=== PATIENT | male | born 1970 ===

== ENCOUNTER 2024-06-12 17:23 | Inpatient (IN) | payer MEDICAID, SELFPAY ==
[2024-06-12] VITALS (58 sets, daily range): BP systolic 97–199; BP diastolic 73–151; PULSE 63–139; RESP 14–32; TEMP 36.4–36.7; O2SAT 87–98
--- NOTE | 2024-06-12 17:15 | RT.EKG_ITS ---
APPROVED REPORT Exam: Resting ECG Reason for Exam: AMS Patient Location: E HR:76 bpm ECG Measurements Heart Rate 76 AXIS UT 148 P 33 QRSd 85 QRS -15 QT 437 T 24 QTc 491 Conclusion Sinus rhythm, rate 76 Borderline QTc prolongation, 491ms No STEMI
--- NOTE | 2024-06-12 17:30 | DI.CT_ITS ---
Exam(s) CT HEAD WO EXAM: CT HEAD WO CLINICAL HISTORY: Altered mental status and speech x 3 days. TECHNIQUE: Imaging Protocol: Axial computed tomography images with coronal and sagittal reformatted images were created and reviewed COMPARISON: No exams were available for comparison FINDINGS: Ventricles and Extra axial spaces: Normal in size and morphology for the patient's age. Hemorrhage: None. Cerebral parenchyma: There are subtle areas of decreased attenuation in the white matter including an area in the left lentiform nucleus. These may represent areas of early chronic microvascular ischem ic disease. Midline shift: None. Brainstem/Cerebellum: Normal. Calvarium: Normal. Visualized Paranasal sinuses/Mastoids: Clear. Soft Tissues: Unremarkable. IMPRESSION: Subtle areas of decreased attenuation in the white matter suggesting early chronic microvascular isch emic disease. There is an area of decreased attenuation in the left lentiform nucleus. Small subacu te infarct cannot be excluded. An MRI of the brain is recommended in this patient for further evalua tion. RADIATION DOSE DELIVERED: 893.4mGy.cm Total DLP DATA REPOSITORY: All CT scans at this facility are submitted to the National Radiology Data Registry (NRDR) Dose Index Registry (DIR) with the [employer] (A[employer]). RADIATION OPTIMIZATION: All CT scans at this facility use at least one of these dose optimization te chniques: automated exposure control; mA and/or kV adjustment per patient size (includes targeted exa ms where dose is matched to clinical indication); or iterative reconstruction.
--- NOTE | 2024-06-12 17:45 | W.ED.GENAD ---
Discharge Plan Disposition Patient Disposition: Admit to [facility] Condition: Stable Discharge Details Clinical Impression: Encephalopathy Admit Date/Time: 06/12/24 20:25 Admit Provider: Luis Michael Attending Provider: Luis Michael Primary Care Provider: Unknown,Unknown ED Provider: Keya Horton Discharge Data Discharge Date/Time-TO BE ENTERED AT DEPARTURE: 06/12/24 21:16 HPI General Mode of arrival: ambulatory. Date/Time Provider Initiated Documentation: 06/12/24 17:26. Limitations to Documentation: no limitations. Information obtained by: patient, police and old records reviewed. HPI Narrative: HPI: This is a 54-year-old male patient currently incarcerated who is presenting for evaluation of altered mental status. The patient reports that about 3 days ago when he started to notice that he felt different, felt intermittently very warm, thought that the other inmates on his unit also looked red in the face. The corrections officers noted that his speech is normal believe than typical for him. States that he has not had any falls or injuries, no measured fevers, denies pain, shortness of breath, nausea or vomiting. He has been taking his prescribed medications, no reported missed doses. No reported illicit substance use or ingestions. Exam: Gen: Awake and alert, in no apparent distress HEENT: Non-icteric sclera, PERRL 3 mm bilaterally Neck: Supple Lungs: No apparent respiratory distress, normal respiratory effort. Lung sounds clear and equal bilaterally CV: Appears well perfused, heart with regular rate and rhythm, no murmurs auscultated Abdomen: Non-distended, soft, nontender MSK: Moves 4 extremities without apparent limitation in ROM within the confines of his shackles. Does endorse some left lower extremity pain in the setting of his history along full knee replacement, incision is well-healed. Skin: Visualized skin without rashes, cyanosis. Neuro: No obvious focal deficits or facial asymmetry. Speech is mumbled, trails off. Psych: Appropriate for situation. MDM: This is a 54-year-old male patient presenting for altered mental status. My differential includes but is not limited to infectious abnormality including urinary tract infection, no pulmonary symptoms to suggest URI or pneumonia. I certainly considered medically metabolic and electrolyte derangements, anemia, kidney and liver injury. Considered substance use, intoxication and withdrawal syndromes. Considered medication adherence, med effects, NMS, serotonin syndrome. Considered intracranial abnormalities including intracranial hemorrhage, stroke, no evidence for seizure activity. We will obtain an EKG, blood glucose, and laboratory studies to include CBC, CMP, magnesium, TSH, troponin, CK, tox screens and urinalysis. I will also obtain noncontrast head CT to better characterize any abnormalities which might account for the patient's symptoms. ED Course: I reviewed the patient's laboratory studies, which show no leukocytosis, very mild anemia of 13.3 and no thrombocytopenia. INR normal, chemistry panel without significant electrolyte derangement, evidence of kidney dysfunction, transaminitis appreciated with an AST of 76 and an ALT of 101. His CK is slightly elevated at 1360, troponin was negative and please follow-up with your primary care provider in the next few days to discuss this visit and any symptoms that change, worsen, or persist. Thank you for allowing us to be part of your care. TSH is within normal limits. Serum tox screen negative. The patient's head CT shows no evidence of intracranial hemorrhage, but does show small areas of hypoattenuation concerning for subacute infarcts. As the patient has had the symptoms for greater than 3 days, he is not in the window for any acute neurologic intervention. Additionally, after reassessment, work reveals worsening sweating, ongoing shaking/jerking movements, and continued mumbling speech, I am more concerned for a toxic/metabolic encephalopathy and I am acute stroke. I did reach out to the hospitalist, to discuss this patient's case. Given the potential for serotonin syndrome in this patient who takes venlafaxine, and prudent to provide this patient with a dose of Ativan despite his lack of tachycardia and fever. He will be admitted for monitoring, meds will be held. The patient was transferred to the floor under the care of the hospitalist service, urinalysis and UDS still pending at this time. I transferred care. Patient otherwise remained hemodynamically appropriate and maintaining his airway throughout. Keya Horton MD Related Data Home Medications ?Medication ?Instructions ?Recorded ?Confirmed albuterol sulfate 90 mcg/actuation 1 inh inhalation Q6H 06/12/24 06/12/24 aerosol inhaler aspirin 81 mg chewable tablet 81 mg PO DAILY 06/12/24 06/12/24 buprenorphine HCl 8 mg sublingual 24 mg sublingual DAILY 06/12/24 06/12/24 tablet lisinopril 10 mg tablet 10 mg PO DAILY 06/12/24 06/12/24 naproxen 500 mg tablet 500 mg PO BID PRN 06/12/24 06/12/24 pantoprazole 20 mg tablet,delayed 20 mg PO DAILY 06/12/24 06/12/24 release (Protonix) quetiapine 50 mg tablet 50 mg PO DAILY 06/12/24 06/12/24 tiotropium bromide 18 mcg capsule 1 cap inhalation DAILY 06/12/24 06/12/24 with inhalation device (Spiriva with HandiHaler) tolnaftate 1 % topical cream 1 applic topical BID 06/12/24 06/12/24 (Antifungal (tolnaftate)) venlafaxine 150 mg 150 mg PO DAILY 06/12/24 06/12/24 capsule,extended release 24 hr venlafaxine 75 mg capsule,extended 75 mg PO DAILY 06/12/24 06/12/24 release 24 hr Allergies Allergy/AdvReac Type Severity Reaction Status Date / Time Penicillins Allergy Unknown Unknown Verified 06/12/24 17:37 General Stated Complaint: AMS/LOC PAUL: 3 Course Vital Signs Vital signs: Vital Signs Temperature 36.4 C 06/12/24 17:25 Respiratory Rate 14 06/12/24 17:25 Blood Pressure 147/97 H 06/12/24 17:25 Pulse Oximetry 97 06/12/24 17:25 Temperature 36.4 C 06/12/24 17:25 Temperature Source Tympanic 06/12/24 17:25 Respiratory Rate 20 06/12/24 17:33 Respiratory Effort Normal 06/12/24 17:33 Respiratory Depth Normal 06/12/24 17:33 Respiratory Pattern Normal 06/12/24 17:33 Blood Pressure 147/97 H 06/12/24 17:25 Blood Pressure Position Supine 06/12/24 17:25 Pulse Oximetry 98 06/12/24 17:33 Oxygen Delivery Method Room Air 06/12/24 17:33 Oxygen Flow Rate 0 06/12/24 17:25 Pain Level 0 06/12/24 17:33 Medical Decision Making Quality:SDOH Health Related Social Needs: No Data to Display PFSH All Active Problems (Updated 06/12/24 @ 21:28 by Keya Horton MD) Encephalopathy (Acute) Social History Smoking risk assessment performed?: No Housing: other
[2024-06-12 18:10] LABS: Abs Immature Grans 0.02 10^3/uL (0.0-0.06); Absolute Basophil Count 0.03 10^3/uL (0.0-0.2); Absolute Eosinophil Count 0.19 10^3/uL (0.0-0.7); Absolute Lymphocyte Count 1.18 10^3/uL (1.2-3.4); Absolute Monocyte Count 0.48 10^3/uL (0.1-0.8); Basophils % 0.5 %; Eosinophils % 3.2 %; HCT 39.2 % (40.0-50.0); HGB 13.3 g/dL (13.5-17.5); Immature Grans % 0.3 %; MCH 28.6 pg (27.0-33.0); MCHC 33.9 % (32.0-36.0); MCV 84 fL (80-95); MPV 10.3 fL (8.0-11.0); Monocytes % 8.1 %; Neutrophils % 67.9 %; Platelet Count 193 10^3/uL (130-400); RBC 4.65 10^6/uL (4.36-5.78); RDW-SD 39.7 fL
[2024-06-12 18:52] LABS: BUN 22 mg/dL (7-18); Calcium 9.3 mg/dL (8.5-10.1); Glucose 75 mg/dL (74-106)
[2024-06-12 18:53] LABS: ALT 101 U/L (16-63); AST 76 U/L (15-37); Albumin 3.8 g/dL (3.4-5.0); Alkaline Phosphatase 87 U/L (46-116); Anion Gap 7.7 mmol/L (3-11); Bilirubin, Total 0.77 mg/dL (0.2-1.0); CO2 28.3 mmol/L (21.0-32.0); CREATININE 0.9 mg/dL (0.70-1.30); Chloride 105 mmol/L (98-107); Creatine Kinase 1360 U/L (39-308); Estimated GFR 100.86 (mL/min/1.73m2); Sodium 141 mmol/L (136-145); Total Protein 6.7 g/dL (6.4-8.2)
[2024-06-12 18:54] LABS: ETHANOL BLOOD < 3.0 mg/dL (<10); Magnesium 1.7 mg/dL (1.8-2.4); TSH (W/Ref FT4) 0.55 uIU/mL (0.36-3.74); Troponin I 12 ng/L (<or=76)
[2024-06-12 19:18] LABS: Salicylate < 2.8 mg/dL (<2.8)
[2024-06-12 19:21] LABS: Acetaminophen < 2 ug/mL (10-30)
[2024-06-12 19:25] LABS: Lab Add On Test DONE
[2024-06-12 19:43] LABS: Calculated LDL 105 mg/dL (<100); Cholesterol 164 mg/dL (<200); HDL Cholesterol 51 mg/dL (40-60); Triglyceride 42 mg/dL (<150)
[2024-06-12 19:46] LABS: INR 1.1 (0.9-1.1); Prothrombin Time 10.9 sec (9.1-11.1)
[2024-06-12 19:49] LABS: Hemoglobin A1C 5.1 % (<5.7)
[2024-06-12 19:54] LABS: Troponin I 11 ng/L (<or=76)
[2024-06-12] MEDS: LORazepam 2 MG/ML VIAL 1 MG IVP ×2 (20:08→20:42)
[2024-06-12] MEDS: Lactated Ringers 1,000 ML 1000 ML IV (20:08)
--- NOTE | 2024-06-12 20:08 | HPE_ITS ---
Date of service: 06/12/24 Time of Service: 20:08 Assessment and Plan Assessment and plan (1) Encephalopathy: Status: Acute Assessment and plan: This is looking like a toxic/metabolic state. I have some concern for Serotonin syndrome, given findings of labile BP, diaphoresis (despite absence of fever), and neuromuscular instability, including twitching, clonus and hyperreflexia. But this may also be some non-specific intoxication. The CT findings (questionable) are clearly incidental as this is not a stroke like picture, but will follow up with MRI once stable. Will hydrate, supportive care with benzodiazepine empirically and hold all psychotropic meds (SNRI, Seroquel) and follow clinically. Substance abuse: will plan on continuing Buprenorphine in AM for usual scheduled dose. HTN?: Noted to be on TERESITA, will resume at usual dose History of Present Illness History of Present Illness Chief Complaint: mental status change Narrative: 54 male with h/o substance abuse, unspecified psychiatric illness, on Seroquel and Effexpor, current incarcerated -- brought here tonight due to report of several days of altered mental status, and today in particular noted to be very twitchy with inarticulate speech. In ER findings of note for absence of fever, labile BP and incessant twitching. CBC and elctrolytes unremarkable; mild transaminitis with AST 76, ALT 101; and CPK 1306. Head CT shows question subacute infarct left lenticular nucleus. I was asked to evaluate for4 admission. Patient denies ingestions. Per ER nurse at facility stated no recent changes in meds. Patient denies pain. Review of Systems Narrative: per HPI PFSH All Active Problems (Updated 06/12/24 @ 20:18 by Luis Michael MD) Encephalopathy (Acute) Social History Smoking risk assessment performed?: No Housing: other Meds Allergies and Home Medications Allergies Allergy/AdvReac Type Severity Reaction Status Date / Time Penicillins Allergy Unknown Unknown Verified 06/12/24 17:37 Home Medications ?Medication ?Instructions ?Recorded ?Confirmed ?Type albuterol sulfate 90 mcg/actuation 1 inh inhalation Q6H 06/12/24 06/12/24 History aerosol inhaler aspirin 81 mg chewable tablet 81 mg PO DAILY 06/12/24 06/12/24 History buprenorphine HCl 8 mg sublingual 24 mg sublingual DAILY 06/12/24 06/12/24 History tablet lisinopril 10 mg tablet 10 mg PO DAILY 06/12/24 06/12/24 History naproxen 500 mg tablet 500 mg PO BID PRN 06/12/24 06/12/24 History pantoprazole 20 mg tablet,delayed 20 mg PO DAILY 06/12/24 06/12/24 History release (Protonix) quetiapine 50 mg tablet 50 mg PO DAILY 06/12/24 06/12/24 History tiotropium bromide 18 mcg capsule 1 cap inhalation DAILY 06/12/24 06/12/24 History with inhalation device (Spiriva with HandiHaler) tolnaftate 1 % topical cream 1 applic topical BID 06/12/24 06/12/24 History (Antifungal (tolnaftate)) venlafaxine 150 mg 150 mg PO DAILY 06/12/24 06/12/24 History capsule,extended release 24 hr venlafaxine 75 mg capsule,extended 75 mg PO DAILY 06/12/24 06/12/24 History release 24 hr Exam Narrative Exam Narrative: 131/113 last recorded, 75, 36.7, 17, 96%. HEENT atraumatic, sweating on forehead; neck supple; lungs clear; heart RRR; abdomen soft and NT; extremities w/o edema; neuro O almost to 3 (knows he's in hospital, year is 2024); PERRL, approx 2-3 mm; EOMI; no facial asymettry; motor 5/5, incessant twitching, DTR 3+ UEs, 4+ LES, + right ankle clonus, toes downgoing Results Labs 06/12/24 18:00 06/12/24 18:00 Labs: Laboratory Results - last 24 hr 06/12/24 06/12/24 06/12/24 18:00 19:19 19:27 WBC 5.90 RBC 4.65 Hgb 13.3 L Hct 39.2 L MCV 84 MCH 28.6 MCHC 33.9 RDW 13.0 Plt Count 193 MPV 10.3 Immature Gran % 0.3 Neutrophils % 67.9 Lymphocytes % 20.0 Monocytes % 8.1 Eosinophils % 3.2 Basophils % 0.5 Nucleated RBC % 0.0 Absolute Neutrophils 4.00 Absolute Lymphocytes 1.18 L Absolute Monocytes 0.48 Absolute Eosinophils 0.19 Absolute Basophils 0.03 PT 10.9 INR 1.1 Sodium 141 Potassium 4.0 Chloride 105 Carbon Dioxide 28.3 Anion Gap 7.7 BUN 22 H Creatinine 0.9 Est GFR (CKD-EPI 2020) 100.86 Glucose 75 Hemoglobin A1c 5.1 Calcium 9.3 Magnesium 1.7 L Total Bilirubin 0.77 AST 76 H ALT 101 H Alkaline Phosphatase 87 Creatine Kinase 1360 H Troponin I 12 11 Total Protein 6.7 Albumin 3.8 Triglycerides 42 Total Cholesterol 164 LDL Cholesterol, Calc 105 H HDL Cholesterol 51 TSH 0.55 Salicylates < 2.8 Acetaminophen < 2 Ethyl Alcohol < 3.0 Add-On Test Request DONE 06/12/24 20:32 WBC RBC Hgb Hct MCV MCH MCHC RDW Plt Count MPV Immature Gran % Neutrophils % Lymphocytes % Monocytes % Eosinophils % Basophils % Nucleated RBC % Absolute Neutrophils Absolute Lymphocytes Absolute Monocytes Absolute Eosinophils Absolute Basophils PT INR Sodium Potassium Chloride Carbon Dioxide Anion Gap BUN Creatinine Est GFR (CKD-EPI 2020) Glucose Hemoglobin A1c Calcium Magnesium Total Bilirubin AST ALT Alkaline Phosphatase Creatine Kinase Troponin I Cancelled Total Protein Albumin Triglycerides Total Cholesterol LDL Cholesterol, Calc HDL Cholesterol TSH Salicylates Acetaminophen Ethyl Alcohol Add-On Test Request Last Vital Signs Temp 36.7 C 06/12/24 19:50 Pulse 75 06/12/24 18:31 Resp 17 06/12/24 18:31 BP 131/113 H 06/12/24 18:31 Pulse Ox 96 06/12/24 18:31 Time Spent Time spent with Patient: 55-74 minutes Time was spent: preparing to see the patient(eg.review tests), obtaining and/or reviewing separately otained hiistory, ordering medications,tests, procedures, referring, communicating with other health career development manager and indepentently interpreting results
[2024-06-12 21:15] LABS: Lab Add On Test DONE
[2024-06-12] MEDS: Normal Saline Flush 10 ML SYR IVP (21:34)
[2024-06-12 21:42] LABS: TSH 0.57 uIU/mL (0.36-3.74)
[2024-06-12] MEDS: Lidocaine 2% Jelly 6 ML SYR (22:28)
[2024-06-12] MEDS: LORazepam 2 MG/ML VIAL IVP (22:35)
[2024-06-12 22:36] LABS: COVID-19 PCR Negative (Negative); Influenza A PCR Negative (Negative); Influenza B PCR Negative (Negative); RSV PCR Negative (Negative)
[2024-06-12 22:36] LABS: Bilirubin Negative (Negative); Blood Trace-intact (Negative); Clarity Clear (Clear); Glucose Negative (Negative); Ketones 40 mg/dL (Negative); Leukocyte Esterase Negative (Negative); Nitrite Negative (Negative)
[2024-06-12 22:42] LABS: Bacteria Negative HPF (Negative); Crystals Negative HPF (Negative); Epithelial Cells Negative HPF (Negative); Mucus Negative (Negative); Other Cells Rare Transitional (Negative)
[2024-06-12 22:43] LABS: C & S Indicated? No; Casts 0-2 Hyaline LPF (Negative)
[2024-06-12 22:48] LABS: *AMPHETAMINES SCREEN URINE Negative (Negative); *BARBITURATES SCREEN URINE Negative (Negative); *BENZODIAZEPINES SCREEN URINE Negative (Negative); Cannabinoids THC Negative (Negative); Cocaine Screen,Urine Negative (Negative); METHADONE URINE SCREEN Negative (Negative); OPIATES URINE SCREEN Negative (Negative); Tricyclic Antidepressants Negative (Negative)
[2024-06-12 22:58] LABS: Source NASOPHARYNX
[2024-06-13] VITALS (119 sets, daily range): BP systolic 111–154; BP diastolic 67–97; PULSE 53–87; RESP 7–25; TEMP 35.9; O2SAT 85–100
[2024-06-13] MEDS: LORazepam 2 MG/ML VIAL IVP (02:00)
[2024-06-13] MEDS: Lactated Ringers 1,000 ML 150 ML IV ×2 (03:45→10:23)
[2024-06-13 07:12] LABS: HCT 46.4 % (40.0-50.0); HGB 15.2 g/dL (13.5-17.5); MCH 28.7 pg (27.0-33.0); MCHC 32.8 % (32.0-36.0); MCV 88 fL (80-95); MPV 9.9 fL (8.0-11.0); Platelet Count 146 10^3/uL (130-400); RDW 13.2 % (11.8-14.1); RDW-SD 41.9 fL; WBC 4.79 10^3/uL (4.4-10.8)
[2024-06-13] MEDS: Tiotropium Bromide-Respimat 10 PUFF INH 2 PUFF IH (08:09)
[2024-06-13 08:17] LABS: Anion Gap 6.6 mmol/L (3-11); BUN 18 mg/dL (7-18); CO2 28.4 mmol/L (21.0-32.0); CREATININE 0.8 mg/dL (0.70-1.30); Calcium 8.3 mg/dL (8.5-10.1); Chloride 107 mmol/L (98-107); Creatine Kinase 945 U/L (39-308); Estimated GFR 104.51 (mL/min/1.73m2); Glucose 65 mg/dL (74-106); Potassium 3.8 mmol/L (3.5-5.1); Sodium 142 mmol/L (136-145)
--- NOTE | 2024-06-13 09:33 | INITIAL_ITS ---
Date of service: 06/13/24 Time of Service: 09:33 Care Management Initial Assmt Initial Assessment Reason for Hospitalization: toxic encephalopathy Functional Status/Living Situation Patient Presentation: Marcelo was lying in bed in the ICU accompanied by a booking officer when CM met with him. He remains quite sleepy but did open his eyes and answered a few questions. Marcelo has been incarcerated for about 2 years. He is originally from [place] and was but is now . When asked if hew had children he answered I lost two. 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 Town of Residence: [facility] [place] Resides with: Other (incarcerated) Employment Status: Unemployed Instrumental Activities of Daily Living (ADLs): Independent Medications Medication Management: No Issues/Barriers identified Advance Directives Advance Directives: Do you have an Advance Directive: AD On File at [facility]: N 06/12/24 18:13 Date Asked 06/12/24 06/12/24 17:40 AD Date Reviewed COLST On File at [facility] COLST Date Scanned Code Status Resuscitation Status Full Code Portal Pt does not currently have a portal and education provided: No Portal Education: Other (incarecerated) Insurance Coverage/Financial Issues [place]: [place] [facility] Care Team Visit Care Team Role Provider Type Unknown Unknown Primary Care Provider STAFF PHYSICIAN Keya Horton MD Emergency Provider [facility] STAFF PHYSICIAN Luis Michael MD Admit Provider [facility] STAFF PHYSICIAN Attending Provider Discharge Potential Discharge Needs: Other (followup with facility providers) Anticipated Barriers to Discharge: None Identified Patient/Family Education Needs: Review discharge instructions, discuss Ask Me Three Transportation: Other ([facility] staff) Plan: Anticipate Marcelo will [facility] when medically cleared. He will follow up with facility providers and plan of care and transport with corrections staff. CM will follow. Social Determinants of Health Screening Will the Patient Participate in the Screening?: Unable to obtain Do you worry about having a steady place to live?: no PFSH All Active Problems (Updated 06/12/24 @ 21:28 by Keya Horton MD) Encephalopathy (Acute) Social History Smoking risk assessment performed?: No Housing: other
[2024-06-13] MEDS: Lisinopril 10 MG TAB PO (11:56)
[2024-06-13] MEDS: Pantoprazole 20 MG TABCR PO (11:57)
[2024-06-13] MEDS: Normal Saline Flush 10 ML SYR IVP (11:57)
[2024-06-13] MEDS: Aspirin 81 MG CHEW PO (11:57)
--- NOTE | 2024-06-13 13:06 | W.NUTRFU ---
Date of service: 06/13/24 Time of Service: 13:06 Nutrition Note NOTE: pt arrives from [facility] and being treated for encephalopathy. Currently ordered as NPO since breakfast this morning. No other significant PMH to mention. Pt weight stable. Will await diet advancement and check on toleration when patient appropriate medically. Currently assessed as lower nutrition risk Time Spent in Nutritional Counseling and Treatment: 0 minutes
--- NOTE | 2024-06-13 15:07 | DSE_ITS ---
Date of service: 06/13/24 Time of Service: 15:07 DS: Diagnosis Discharge Diagnosis (1) Encephalopathy: Status: Acute Discharge Plan Disposition [facility] Disposition: [facility] Condition: Good Discharge Details Reason For Visit: Toxic Encephalopathy Admit Date/Time: 06/12/24 20:25 Admit Provider: Luis Michael Attending Provider: Luis Michael Primary Care Provider: Unknown,Unknown Hospital Course Hospital Course: Patient initially presented with signs and symptoms concerning for what appeared to be serotonin syndrome with vesiculated type B events, and confusion, though the patient did not have any tachycardia or elevated temperature. He is from [facility] and takes buprenorphine alone, quetiapine and venlafaxine, though after being admitted it was noted the patient had unknown powdered like substance in his shoe that was determined to be buprenorphine which is likely what he ingested. During hospitalization patient was treated with Ativan and did have significant improvement of his symptoms. Ultimately, he returned to baseline mental status and was determined to be stable for discharge back to correctional facility. Home Meds and New Rx's Prescriptions: Continued pantoprazole [Protonix] 20 mg tablet,delayed release (DR/EC) 20 mg PO DAILY quetiapine 50 mg tablet 50 mg PO DAILY tolnaftate [Antifungal (tolnaftate)] 1 % cream 1 applic topical BID buprenorphine HCl 8 mg tablet, sublingual 24 mg sublingual DAILY naproxen 500 mg tablet 500 mg PO BID PRN lisinopril 10 mg tablet 10 mg PO DAILY aspirin 81 mg tablet,chewable 81 mg PO DAILY venlafaxine 75 mg capsule,extended release 24hr 75 mg PO DAILY albuterol sulfate 90 mcg/actuation HFA aerosol inhaler 1 inh inhalation Q6H venlafaxine 150 mg capsule,extended release 24hr 150 mg PO DAILY tiotropium bromide [Spiriva with HandiHaler] 18 mcg capsule, w/inhalation device 1 cap inhalation DAILY Rx Instructions: puncture 1 cap using device; one dose = 2 inhalations Discharge Instructions Activity:: Activity as Tolerated Equipment/Supplies:: No Equipment Needed Diet:: As Tolerated Discharge Orders Discharge Orders: Discharge Order (Routine); Ordered 06/13/24 Ordered By: Adam Leyva DS: Summary Time Spent with Patient providing and/or coordinating discharge services: Greater than 30 minutes Status at Discharge Functional status at discharge: independent ambulation Overall status at discharge: patient is back to baseline Mental Status: mental status grossly normal Speech and Movement: speech and movement normal Mood: congruent mood Affect: normal affect Quality:SDOH Health Related Social Needs: No Data to Display Exam Narrative Exam Narrative: Well-appearing gentleman sitting with the bed eating lunch, awake, alert, oriented, does not appear to be in any acute pain, heart regular rate rhythm, lungs clear to auscultation bilaterally, abdomen soft, nontender, nondistended, PERRLA, cranial nerves II through XII intact, normal sensation and strength in bilateral upper and lower extremities Psych Mental Status: mental status grossly normal Speech and Movement: speech and movement normal Mood: congruent mood Affect: normal affect DS: Data Vitals/I&O Vitals and I&O: Vital Signs Temperature 96.6 F L 06/13/24 12:01 Temperature Source Temporal Artery Scan 06/12/24 23:53 Pulse 77 06/13/24 12:01 Pulse 85 06/13/24 12:01 Respiratory Rate 24 06/13/24 12:01 Respiratory Effort Normal 06/12/24 21:30 Respiratory Depth Normal 06/12/24 17:33 Respiratory Pattern Normal 06/12/24 17:33 Blood Pressure 142/96 H 06/13/24 12:01 Blood Pressure Mean 112 06/13/24 12:01 Blood Pressure Position Supine 06/12/24 17:25 Pulse Oximetry 99 06/13/24 12:00 Respiratory End-tidal CO2 23 06/13/24 06:30 Oxygen Delivery Method Room Air 06/13/24 08:13 Oxygen Flow Rate 0 06/13/24 08:13 Pain Level 0 06/12/24 21:30 Intake & Output 06/12/24 06/13/24 06/13/24 17:59 05:59 17:59 Intake Total 1000 / 1000 995 / 995 Output Total 750 / 750 350 / 350 Balance 250 / 250 645 / 645 Weight 180 lb 191 lb 5.78 oz Intake: IV 1000 / 1000 995 / 995 Output: Urine 750 / 750 350 / 350 Other: Urine Color Straw Light Ivelisse Urine Appearance Clear Clear Comment Brandon catheter intact and draining yellow urine. Data Completed and Pending Labs on day of discharge: Labs from last 24 hours 06/13/24 06/13/24 06/12/24 07:45 06:58 Unknown WBC 4.79 RBC 5.30 Hgb 15.2 Hct 46.4 MCV 88 D MCH 28.7 MCHC 32.8 RDW 13.2 Plt Count 146 MPV 9.9 Immature Gran % Neutrophils % Lymphocytes % Monocytes % Eosinophils % Basophils % Nucleated RBC % Absolute Neutrophils Absolute Lymphocytes Absolute Monocytes Absolute Eosinophils Absolute Basophils PT INR Sodium 142 Potassium 3.8 Chloride 107 Carbon Dioxide 28.4 Anion Gap 6.6 BUN 18 Creatinine 0.8 Est GFR (CKD-EPI 2020) 104.51 Glucose 65 L Hemoglobin A1c Calcium 8.3 L Magnesium Total Bilirubin AST ALT Alkaline Phosphatase Creatine Kinase 945 H Troponin I Total Protein Albumin Triglycerides Total Cholesterol LDL Cholesterol, Calc HDL Cholesterol TSH Urine Color Urine Clarity Urine pH Ur Specific [place] Urine Protein Urine Ketones Urine Blood Urine Nitrite Urine Bilirubin Urine Urobilinogen Ur Leukocyte Esterase Urine RBC Urine WBC Ur Epithelial Cells Urine Crystals Urine Bacteria Urine Casts Urine Mucus Urine Other Ur Culture Indicated? Urine Glucose Salicylates Urine Opiates Screen Urine Methadone Screen Acetaminophen Ur Barbiturates Screen Ur Tricyclics Screen Ur Amphetamines Screen U Benzodiazepines Scrn Urine Cocaine Screen Ur THC Screen Ethyl Alcohol COVID-19 Source SARS-CoV-2 (PCR) Influenza Type A (PCR) Influenza Type B (PCR) RSV (PCR) Add-On Test Request DONE 06/12/24 06/12/24 06/12/24 21:58 21:50 20:32 WBC RBC Hgb Hct MCV MCH MCHC RDW Plt Count MPV Immature Gran % Neutrophils % Lymphocytes % Monocytes % Eosinophils % Basophils % Nucleated RBC % Absolute Neutrophils Absolute Lymphocytes Absolute Monocytes Absolute Eosinophils Absolute Basophils PT INR Sodium Potassium Chloride Carbon Dioxide Anion Gap BUN Creatinine Est GFR (CKD-EPI 2020) Glucose Hemoglobin A1c Calcium Magnesium Total Bilirubin AST ALT Alkaline Phosphatase Creatine Kinase Troponin I Cancelled Total Protein Albumin Triglycerides Total Cholesterol LDL Cholesterol, Calc HDL Cholesterol TSH Urine Color Yellow Urine Clarity Clear Urine pH 7.0 Ur Specific [place] 1.020 Urine Protein Negative Urine Ketones 40 H Urine Blood Trace-intact H Urine Nitrite Negative Urine Bilirubin Negative Urine Urobilinogen 2.0 H Ur Leukocyte Esterase Negative Urine RBC 3-5 H Urine WBC 3-5 Ur Epithelial Cells Negative Urine Crystals Negative Urine Bacteria Negative Urine Casts 0-2 Hyaline Urine Mucus Negative Urine Other Rare Transitional Ur Culture Indicated? No Urine Glucose Negative Salicylates Urine Opiates Screen Negative Urine Methadone Screen Negative Acetaminophen Ur Barbiturates Screen Negative Ur Tricyclics Screen Negative Ur Amphetamines Screen Negative U Benzodiazepines Scrn Negative Urine Cocaine Screen Negative Ur THC Screen Negative Ethyl Alcohol COVID-19 Source NASOPHARYNX SARS-CoV-2 (PCR) Negative Influenza Type A (PCR) Negative Influenza Type B (PCR) Negative RSV (PCR) Negative Add-On Test Request 06/12/24 06/12/24 06/12/24 19:27 19:19 18:00 WBC RBC Hgb Hct MCV MCH MCHC RDW Plt Count MPV Immature Gran % Neutrophils % Lymphocytes % Monocytes % Eosinophils % Basophils % Nucleated RBC % Absolute Neutrophils Absolute Lymphocytes Absolute Monocytes Absolute Eosinophils Absolute Basophils PT INR Sodium Potassium Chloride Carbon Dioxide Anion Gap BUN Creatinine Est GFR (CKD-EPI 2020) Glucose Hemoglobin A1c Calcium Magnesium Total Bilirubin AST ALT Alkaline Phosphatase Creatine Kinase Troponin I 11 Total Protein Albumin Triglycerides 42 Total Cholesterol 164 LDL Cholesterol, Calc 105 H HDL Cholesterol 51 TSH 0.57 Urine Color Urine Clarity Urine pH Ur Specific [place] Urine Protein Urine Ketones Urine Blood Urine Nitrite Urine Bilirubin Urine Urobilinogen Ur Leukocyte Esterase Urine RBC Urine WBC Ur Epithelial Cells Urine Crystals Urine Bacteria Urine Casts Urine Mucus Urine Other Ur Culture Indicated? Urine Glucose Salicylates < 2.8 Urine Opiates Screen Urine Methadone Screen Acetaminophen < 2 Ur Barbiturates Screen Ur Tricyclics Screen Ur Amphetamines Screen U Benzodiazepines Scrn Urine Cocaine Screen Ur THC Screen Ethyl Alcohol < 3.0 COVID-19 Source SARS-CoV-2 (PCR) Influenza Type A (PCR) Influenza Type B (PCR) RSV (PCR) Add-On Test Request DONE 06/12/24 18:00 WBC 5.90 RBC 4.65 Hgb 13.3 L Hct 39.2 L MCV 84 MCH 28.6 MCHC 33.9 RDW 13.0 Plt Count 193 MPV 10.3 Immature Gran % 0.3 Neutrophils % 67.9 Lymphocytes % 20.0 Monocytes % 8.1 Eosinophils % 3.2 Basophils % 0.5 Nucleated RBC % 0.0 Absolute Neutrophils 4.00 Absolute Lymphocytes 1.18 L Absolute Monocytes 0.48 Absolute Eosinophils 0.19 Absolute Basophils 0.03 PT 10.9 INR 1.1 Sodium 141 Potassium 4.0 Chloride 105 Carbon Dioxide 28.3 Anion Gap 7.7 BUN 22 H Creatinine 0.9 Est GFR (CKD-EPI 2020) 100.86 Glucose 75 Hemoglobin A1c 5.1 Calcium 9.3 Magnesium 1.7 L Total Bilirubin 0.77 AST 76 H ALT 101 H Alkaline Phosphatase 87 Creatine Kinase 1360 H Troponin I 12 Total Protein 6.7 Albumin 3.8 Triglycerides Total Cholesterol LDL Cholesterol, Calc HDL Cholesterol TSH 0.55 Urine Color Urine Clarity Urine pH Ur Specific [place] Urine Protein Urine Ketones Urine Blood Urine Nitrite Urine Bilirubin Urine Urobilinogen Ur Leukocyte Esterase Urine RBC Urine WBC Ur Epithelial Cells Urine Crystals Urine Bacteria Urine Casts Urine Mucus Urine Other Ur Culture Indicated? Urine Glucose Salicylates Urine Opiates Screen Urine Methadone Screen Acetaminophen Ur Barbiturates Screen Ur Tricyclics Screen Ur Amphetamines Screen U Benzodiazepines Scrn Urine Cocaine Screen Ur THC Screen Ethyl Alcohol COVID-19 Source SARS-CoV-2 (PCR) Influenza Type A (PCR) Influenza Type B (PCR) RSV (PCR) Add-On Test Request PFSH All Active Problems (Updated 06/12/24 @ 21:28 by Keya Horton MD) Encephalopathy (Acute) Social History Smoking risk assessment performed?: No Housing: other Time Spent with Patient Time Spent with Patient: <45 minutes Time was spent: preparing to see the patient(eg.review tests), obtaining and/or reviewing separately otained hiistory, ordering medications,tests, procedures, referring, communicating with other health adult daycare coordinator, indepentently interpreting results, counseling the patient and care coordination
== END 2024-06-13 16:40 | DRG 93 ==
LOC: ER 18:59 → ICU 21:16
PROVIDERS: Admitting Provider General Practice; Emergency Provider Emergency Medicine; Visit Provider General Practice
DX: G92.8 Other toxic encephalopathy (principal); R47.1 Dysarthria and anarthria; R74.01 Elevation of levels of liver transaminase levels; R25.8 Other abnormal involuntary movements; T40.495A Adverse effect of other synthetic narcotics, initial encounter; Z79.899 Other long term (current) drug therapy
CPT/HCPCS: 00123; 36415; 36416; 80048; 80053; 80061; 80307; 82550; 82962; 85027; 87637; 93005; 94640; 96374; 96376; 99285; 70450; 80320; 80329; 81003; 81015; 83036; 83735; 84443; 84484; 85025; 85610; 93010; 94664; 94760; 99223; 99239; J2060; J3490